=== PATIENT | female | born 1985 | race Caucasian/White ===

== ENCOUNTER 2019-07-18 11:51 | Outpatient (REF) | payer OTHER, SELFPAY ==
--- NOTE | 2019-07-18 11:00 | PAPFT_PTH ---
PATIENT: Jaja Patricio LOC: [facility]#:[id number] AGE/SX: 34/F ROOM: RE07/18/[address]: Georgi Arceo : 1985 BED: DIS: 07/18/2019 SPEC #: [id number] RECD: 07/21/19 12:34 STATUS: ROM REQ #: [id number] TUCKER: 07/18/19 11:[address]: Georgi Arceo DEPT: [facility] Cytology RECD BY: Liliana Bush ENTERED: 07/21/19 12:35 SP TYPE: PAPFT RAH DR: Jenifer Local Tissues: 1 - CX/ENDOCX FOR PAP SMEARS Procedures: PAP THIN PREP/UVM Screening HPV DNA PROBE Comments: [id number]
[2019-07-18 19:33] LABS: HCT 41.1 % (36.0-46.0); HGB 13.9 g/dL (12.0-15.5); Mean Corp. HGB Concentration 33.8 g/dL (32.0-36.0); Mean Corpuscular Hemoglobin 30.3 pg (27.0-33.0); Mean Corpuscular Volume 89.5 fL (80-95); Mean Platelet Volume 11.4 fL (8.0-11.0); Platelet Count 236 x1000/uL (130-400); RBC 4.59 m/cumm (4.00-5.20); RBC Distribution Width 12.6 % (11.7-14.6); White Blood Cell Count 4.22 k/cumm (4.4-10.8)
[2019-07-18 20:05] LABS: ALT 30 U/L (14-59); AST 17 U/L (15-37); Albumin 4.6 g/dL (3.4-5.0); Alkaline Phosphatase 36 U/L (46-116); Anion Gap 8.6 mmol/L (3-11); BUN 16 mg/dL (7-18); Bilirubin, Total 0.8 mg/dL (0.2-1.0); CO2 28.4 mmol/L (21.0-32.0); CREATININE 0.77 mg/dL (0.55-1.02); Calcium 9.3 mg/dL (8.5-10.1); Chloride 105 mmol/L (98-107); Glucose 91 mg/dL (74-106); Potassium 4.1 mmol/L (3.5-5.1); Sodium 142 mmol/L (136-145); TSH (W/Ref FT4) 0.07 uIU/mL (0.36-3.74); Total Protein 7.4 g/dL (6.4-8.2)
[2019-07-18 20:28] LABS: FREE T4 1.45 ng/dL (0.76-1.46)
[2019-07-18 20:43] LABS: Calculated LDL 80 mg/dL (<100); Cholesterol 148 mg/dL (<200); HDL Cholesterol 63 mg/dL (40-60); Triglyceride 26 mg/dL (<150)
== END 2019-07-18 12:11 ==
LOC: NCHCN 11:51
PROVIDERS: Visit Provider Nurse Practitioner Family
DX: E06.3 Autoimmune thyroiditis (principal); Z00.00 Encounter for general adult medical examination without abnormal findings; Z13.220 Encounter for screening for lipoid disorders; Z12.4 Encounter for screening for malignant neoplasm of cervix; Z11.51 Encounter for screening for human papillomavirus (HPV)
CPT/HCPCS: 80053; 80061; 85027; 88142; 84439; 84443; 87624

== ENCOUNTER 2020-02-13 01:36 | Outpatient (CLI) | payer OTHER, SELFPAY ==
--- NOTE | 2020-02-19 08:34 | W.HOLTRPT ---
Date of service: 02/19/20 Time of Service: 08:34 Holter Monitor Report Referring Provider:: Marielos Indications:: Palps Holter Monitor Note: This is a 48-hour Holter monitor ordered for indication of palpitations. ?The patient was in normal sinus rhythm for the majority of the recording with an average heart rate of 88 bpm. ?There were no episodes of supraventricular tachycardia and 4 singular PACs. ?There were no episodes of ventricular tachycardia and 0 PVCs. ?There were no episodes of atrial fibrillation, no pauses greater than 3 seconds and no evidence of high-grade heart block.
== END 2020-02-13 01:56 ==
PROVIDERS: PCP Nurse Practitioner Family; Visit Provider Nurse Practitioner Family
DX: R00.2 Palpitations (principal)
CPT/HCPCS: 93225

== ENCOUNTER 2020-02-18 09:08 | Outpatient (CLI) | payer OTHER, SELFPAY | END 2020-02-18 09:28 | PROVIDERS: PCP Nurse Practitioner Family; Visit Provider Nurse Practitioner Family | DX: R00.2 Palpitations (principal) | CPT/HCPCS: 93226 ==

== ENCOUNTER 2020-02-19 02:22 | Outpatient (CLI) | payer OTHER, SELFPAY ==
--- NOTE | 2020-02-19 | DI.US_ITS ---
APPROVED REPORT EXAM: Comprehensive 2D, Doppler, and color-flow Echocardiogram Patient Location: Out-Patient Educational Program Director: Lucina An RDCS (AE) Indications: Palpitations, Murmur Other Information Study Quality: Good Conclusion Left Ventricle : The left ventricle is normal size. The left ventricular systolic function is normal. The left ventricular ejection fraction is within the normal range. There is normal left ventricular wall thickness. There is normal LV segmental wall motion. The left ventricular diastolic function is normal. LVEF is 60%. Right Ventricle : The right ventricle is normal size. The right ventricular systolic function is norm al. The RVSP is 25.0 mmHg. Atria : The left atrium size is normal. The right atrium size is normal. Valves: There are no hemodynamically significant valvular lesions. Great Vessels : The aortic root is normal in size. The ascending aorta is normal in size. Aortic arch is normal in caliber. IVC is normal in size and collapses >50% with inspiration. Please see remainder of study for further details. Wall motion Left Ventricle The left ventricle is normal size. The left ventricular systolic function is normal. The left ventric ular ejection fraction is within the normal range. There is normal left ventricular wall thickness. T here is normal LV segmental wall motion. The left ventricular diastolic function is normal. There is no ventricular septal defect visualized. LVEF is 60%. Right Ventricle The right ventricle is normal size. The right ventricular systolic function is normal. The RVSP is 25 .0 mmHg. Atria The left atrium size is normal. The right atrium size is normal. The interatrial septum is intact wit h no evidence for an atrial septal defect. Aortic Valve The aortic valve is normal in structure. Aortic valve is trileaflet. There is no aortic valvular sten osis. No aortic regurgitation is present. Mitral Valve The mitral valve is normal in structure. No evidence of mitral valve stenosis. Trace to mild mitral r egurgitation. Tricuspid Valve The tricuspid valve is normal in structure. There is no tricuspid valve stenosis. Mild tricuspid regu rgitation. Pulmonic Valve The pulmonary valve is normal in structure. There is no pulmonic valvular stenosis. There is no pulmo kasi valvular regurgitation. Great Vessels The aortic root is normal in size. The ascending aorta is normal in size. Aortic arch is normal in ca liber. IVC is normal in size and collapses >50% with inspiration. Pericardium There is no pericardial effusion. 2D Dimensions IVSD d PLAX 0.84 cm F: 0.6-1.0 LV Vol A2C d MOD 130.3 mL LVPW d PLAX 0.80 cm F: 0.6 - 1.0 LV Vol A4C d MOD 96.3 mL LVID d PLAX 4.63 cm F: 3.8 - 5.2 LA vol/ BSA A4C s A-L 18.7 mL/m2 LVDs 3.00 cm F: 2.2 - 3.5 LA Area A4C s MOD 13.44 cm2 Ao Root d 2.56 cm F: 2.7 - 3.3 LV EF A4C MOD 59.8 % RA Area A4C 9.95 cm2 LV EF A2C MOD 58.1 % RA Vol/ BSA A4C s A-L 12.3 mL/m2 LV EF Biplane MOD 59.3 % Ao Asc Diam d 2.86 cm F: 2.3 - 3.1 SV 66.86 mL LV EF Teichholz 63.8 % SV Index 42.00 mL/m2 LVEF (Ocampo's) 59.29 % F: 54 - 74 LV Volume 91.80 mL F: 46 - 106 LV Volume Index 57.73 mL/m2 F: 29 - 61 LV Vol Biplane MOD 112.8 mL FS 34.60 % M-Mode TAPSE 2.81 cm (M/F) >1.7 LV Diastology MV E' medial 0.110 (>0.07 m/s) E/A Ratio 1.7 LV E/e MED 8.20 (<14) MV E Vmax 0.91 (0.4-1.3 m/s) MV E' lateral 0.175 (>0.1 m/s) MV A Vmax 0.55 (0.4-1.3 m/s) LV E/e LAT 5.15 (<14) MV E/A Ratio 1.65 MV E/E' medial 8.22 MV E/E' lateral 5.19 Aortic Valve LVOT Area 3.22 cm2 AoV Area Vmax 2.24 cm2 LVOT Vmax 0.92 m/s AoV Area/ BSA (Vmax) 1.41 cm2/m2 LVOT Mean Edin. 0.64 m/s GENEVIEVE Mean Edin. 2.09 cm2 LVOT Peak Grad 3.4 mmHg GENEVIEVE Mean Edin. Index 1.31 cm2/m2 LVOT Mean Grad 1.8 mmHg LVOT VTI 0.208 m LVOT Diam s 2.00 cm AoV Vmax 1.32 m/s Velocity Ratio 0.69 AoV Mean Edin. 0.98 m/s AoV Peak Grad 7.0 mmHg LVOT SV 67.10 mL AoV Mean Grad 4.2 mmHg AoV VTI 0.289 m AoV Area VTI 2.32 cm2 AoV Area/ BSA (VTI) 1.46 cm/m2 Mitral Valve MV DT 209 (160-240 msec) MV PHT 61 msec MV Area PHT 3.63 cm2 Pulmonary Valve PV Vmax 0.99 (0.5-1.5 m/s) RVOT Peak Gr. 2.29 mmHg PV Peak Grad 3.9 mmHg RVOT Mean Gr. 1.00 mmHg PV Mean Grad 1.8 mmHg RVOT VTI 0.149 m PV VTI 0.208 m RVOT Vmax 0.76 m/s Tricuspid Valve TR Peak Grad 22.0 mmHg TR Vmax 2.35 m/s RA Pressure 3.00 mmHg RVSP (TR) 25.0 mmHg
== END 2020-02-19 02:42 ==
PROVIDERS: PCP Nurse Practitioner Family; Visit Provider Nurse Practitioner Family
DX: R00.2 Palpitations (principal); R01.1 Cardiac murmur, unspecified
CPT/HCPCS: 93306

== ENCOUNTER 2020-03-24 02:14 | Outpatient (CLI) | payer OTHER, SELFPAY ==
[2020-03-25 09:48] LABS: HBs Antibody, Quant 761.9 mIU/mL (See Note); Hepatitis B Surface Ab Positive (See Note)
== END 2020-03-24 02:34 ==
PROVIDERS: PCP Nurse Practitioner Family; Visit Provider Nurse Practitioner Family
DX: E06.3 Autoimmune thyroiditis (principal); Z11.59 Encounter for screening for other viral diseases; Z02.1 Encounter for pre-employment examination
CPT/HCPCS: 36415; 86706; 84443

== ENCOUNTER 2020-12-24 20:58 | Outpatient (REF) | payer OTHER, SELFPAY ==
[2020-12-26 01:50] LABS: COVID-19 RT-PCR UVMMC Result Negative (Negative)
== END 2020-12-24 20:59 | disposition home or self-care (01) ==
LOC: LBN 20:58
PROVIDERS: PCP Nurse Practitioner Family; Visit Provider Nurse Practitioner Family
DX: Z20.822 Contact with and (suspected) exposure to COVID-19 (principal)
CPT/HCPCS: U0003

== ENCOUNTER 2021-01-12 11:15 | Outpatient (REF) | payer OTHER, SELFPAY ==
[2021-01-13 00:09] LABS: COVID-19 RT-PCR UVMMC Result Negative (Negative)
== END 2021-01-12 11:16 | disposition home or self-care (01) ==
LOC: LBN 11:15
PROVIDERS: PCP Nurse Practitioner Family; Visit Provider Nurse Practitioner Family
DX: Z20.822 Contact with and (suspected) exposure to COVID-19 (principal)
CPT/HCPCS: U0003

== ENCOUNTER 2021-04-04 18:50 | Outpatient (REF) | payer OTHER, SELFPAY ==
[2021-04-05 20:19] LABS: COVID-19 RT-PCR UVMMC Result Negative (Negative)
== END 2021-04-04 18:51 | disposition home or self-care (01) ==
LOC: LBN 18:50
PROVIDERS: PCP Nurse Practitioner Family; Visit Provider Nurse Practitioner Family
DX: Z20.822 Contact with and (suspected) exposure to COVID-19 (principal)
CPT/HCPCS: U0003

== ENCOUNTER 2021-04-09 10:30 | Outpatient (CLI) | payer OTHER, SELFPAY ==
--- NOTE | 2021-04-09 10:30 | DI.RAD_ITS ---
Exam(s) XR ANKLE LT COMPLETE EXAM: XR ANKLE LT COMPLETE CLINICAL HISTORY: r/o fx TECHNIQUE: 2D digital imaging was performed of the left ankle. Three images were obtained. AP, lat eral and oblique views were obtained. COMPARISON: No exams were available for comparison FINDINGS: BONES: No acute fracture is present. No bony destructive lesion is seen. JOINTS:The ankle mortise is normally aligned. SOFT TISSUE: Normal. IMPRESSION: Unremarkable radiographs of the left ankle. DATA REPOSITORY: RADIATION DOSE DELIVERED:
--- NOTE | 2021-04-09 10:30 | DI.RAD_ITS ---
Exam(s) XR FOOT LT COMPLETE EXAM: XR FOOT LT COMPLETE CLINICAL HISTORY: r/o fx. TECHNIQUE: 2D digital imaging was performed of the left foot. Three images were obtained. AP, obli que and lateral views were obtained. COMPARISON: No exams were available for comparison FINDINGS: BONES: No acute fracture is present. No bony destructive lesion is seen. JOINTS: No dislocation present. SOFT TISSUE: Normal. IMPRESSION: Unremarkable radiographs of the left foot. DATA REPOSITORY: RADIATION DOSE DELIVERED:
--- NOTE | 2021-04-09 13:21 | DI.VRAD_ITS ---
PROCEDURE INFORMATION: Exam: XR Left Foot Exam date and time: 04/09/2021 10:45 AM Age: 36 years old Clinical indication: Injury or trauma; Other: Skiing ax; Sprain or strain; Foot; Left TECHNIQUE: Imaging protocol: XR Left foot. Views: 3 or more views. COMPARISON: No relevant images were readily available for comparison purposes. FINDINGS: Bones/joints: No acute fracture or dislocation Soft tissues: Unremarkable IMPRESSION: No acute fracture or dislocation Dictated and Authenticated by: Maico Blanchard MD. Ordering:MARCELLA Gonsalez MD
--- NOTE | 2021-04-09 13:22 | DI.VRAD_ITS ---
PROCEDURE INFORMATION: Exam: XR Left Ankle Exam date and time: 04/09/2021 10:45 AM Age: 36 years old Clinical indication: Injury or trauma; Other: Skiin ax; Sprain or strain; Ankle; Left TECHNIQUE: Imaging protocol: XR Left ankle. Views: 3 or more views. COMPARISON: CR XR FOOT LT COMPLETE 04/09/2021 11:24 AM FINDINGS: Bones/joints: No acute fracture or dislocation. Soft tissues: Unremarkable. IMPRESSION: No acute fracture or dislocation. Dictated and Authenticated by: Maico Blanchard MD. Ordering:MARCELLA Gonsalez MD
== END 2021-04-09 10:50 ==
PROVIDERS: PCP Nurse Practitioner Family; Visit Provider Nurse Practitioner Family
DX: M79.672 Pain in left foot (principal)
CPT/HCPCS: 73610; 73630

== ENCOUNTER 2021-04-20 15:38 | Outpatient (REF) | payer OTHER, SELFPAY ==
[2021-04-21 22:41] LABS: COVID-19 RT-PCR UVMMC Result Negative (Negative)
== END 2021-04-20 15:39 | disposition home or self-care (01) ==
LOC: LBN 15:38
PROVIDERS: PCP Nurse Practitioner Family; Visit Provider Nurse Practitioner Family
DX: Z20.822 Contact with and (suspected) exposure to COVID-19 (principal)
CPT/HCPCS: U0003

== ENCOUNTER 2021-05-23 16:50 | Outpatient (REF) | payer OTHER, SELFPAY ==
[2021-05-23 18:18] LABS: HCT 43.5 % (36.0-46.0); HGB 14.1 g/dL (11.2-15.7); MCH 29.7 pg (27.0-33.0); MCHC 32.4 % (32.0-36.0); MCV 91.8 fL (80-95); MPV 10.8 fL (8.0-11.0); Platelet Count 235 10^3/uL (130-400); RBC 4.74 10^6/uL (3.93-5.22); RDW 12.2 % (11.7-14.6); RDW-SD 41.3 fL; WBC 4.59 10^3/uL (4.4-10.8)
[2021-05-23 18:38] LABS: ALT 23 U/L (14-59); AST 16 U/L (15-37); Albumin 4.6 g/dL (3.4-5.0); Alkaline Phosphatase 34 U/L (46-116); Anion Gap 7.7 mmol/L (3-11); BUN 13 mg/dL (7-18); Bilirubin, Total 0.9 mg/dL (0.2-1.0); CO2 29.3 mmol/L (21.0-32.0); CREATININE 0.7 mg/dL (0.55-1.02); Calcium 9.5 mg/dL (8.5-10.1); Chloride 100 mmol/L (98-107); Glucose 77 mg/dL (74-106); Potassium 4.1 mmol/L (3.5-5.1); Sodium 137 mmol/L (136-145); TSH (W/Ref FT4) 0.59 uIU/mL (0.36-3.74); Total Protein 7.6 g/dL (6.4-8.2)
[2021-05-25 10:12] LABS: Hepatitis C Ab w Rflx HCV PCR Negative (Negative)
[2021-05-25 10:45] LABS: HIV-1/2 Ag & Ab Screen Negative (Negative)
== END 2021-05-23 16:51 | disposition home or self-care (01) ==
LOC: NCHCN 16:50
PROVIDERS: PCP Nurse Practitioner Family; Visit Provider Nurse Practitioner Family
DX: E06.3 Autoimmune thyroiditis (principal); Z11.4 Encounter for screening for human immunodeficiency virus [HIV]; Z11.59 Encounter for screening for other viral diseases
CPT/HCPCS: 80053; 85027; 86803; 87389; 84443

== ENCOUNTER 2021-05-30 15:38 | Outpatient (REF) | payer OTHER, SELFPAY ==
[2021-05-31 20:14] LABS: COVID-19 RT-PCR UVMMC Result Negative (Negative)
== END 2021-05-30 15:39 | disposition home or self-care (01) ==
LOC: LBO 15:38
PROVIDERS: PCP Nurse Practitioner Family; Visit Provider Nurse Practitioner Family
DX: Z20.822 Contact with and (suspected) exposure to COVID-19 (principal)
CPT/HCPCS: U0003

== ENCOUNTER 2022-03-06 17:27 | Outpatient (REF) | payer OTHER, SELFPAY ==
[2022-03-07 21:34] LABS: COVID-19 RT-PCR UVMMC Result Negative (Negative)
== END 2022-03-06 17:28 | disposition home or self-care (01) ==
LOC: LBN 17:27
PROVIDERS: Visit Provider Nurse Practitioner Family
DX: Z20.822 Contact with and (suspected) exposure to COVID-19 (principal)
CPT/HCPCS: U0003

== ENCOUNTER 2022-12-11 18:45 | Outpatient (REF) | payer OTHER, SELFPAY ==
[2022-12-11 21:23] LABS: HCT 37.1 % (36.0-46.0); HGB 12.8 g/dL (11.2-15.7); MCH 30.5 pg (27.0-33.0); MCHC 34.5 % (32.0-36.0); MCV 88 fL (80-95); MPV 10.8 fL (8.0-11.0); Platelet Count 220 10^3/uL (130-400); RDW 12.2 % (11.7-14.6); RDW-SD 39.2 fL; WBC 6.17 10^3/uL (4.4-10.8)
[2022-12-11 21:44] LABS: TSH (W/Ref FT4) 1.21 uIU/mL (0.36-3.74)
== END 2022-12-11 18:46 | disposition home or self-care (01) ==
LOC: NCHCN 18:45
PROVIDERS: PCP Nurse Practitioner Family; Visit Provider Nurse Practitioner Family
DX: E06.3 Autoimmune thyroiditis (principal); K64.9 Unspecified hemorrhoids
CPT/HCPCS: 85027; 84443

== ENCOUNTER → 2022-12-27 13:19 | Outpatient (CLI) | payer OTHER, SELFPAY ==
--- NOTE | 2022-12-27 13:44 | DI.RAD_ITS ---
Exam(s) XR KNEE LT 4V AP,LAT,CARTER,PAT EXAM: XR KNEE LT 4V AP,LAT,CARTER,PAT CLINICAL HISTORY: fell off boat 1.5 weeks ago, getting worse, lt knee pain, M25.562. TECHNIQUE: 2D digital imaging was performed of the left knee. Four images were obtained. Merchant, AP, lateral and PA tunnel views were obtained. COMPARISON: No exams were available for comparison FINDINGS: BONES: No acute fracture is present. No bony destructive lesion is seen. There are postsurgical jones ges of a prior ACL repair. JOINTS: The knee is normally aligned. No joint effusion is seen. No loose body. SOFT TISSUE: Normal. IMPRESSION: No acute abnormality. DATA REPOSITORY: RADIATION DOSE DELIVERED:
== END ==
PROVIDERS: PCP Nurse Practitioner Family; Visit Provider Nurse Practitioner Family
DX: M25.562 Pain in left knee (principal)
CPT/HCPCS: 73564

== ENCOUNTER 2023-01-05 21:18 | Outpatient (REF) | payer OTHER, SELFPAY ==
[2023-01-08 10:03] LABS: Measles IgG Antibody Positive (See Note)
[2023-01-08 10:06] LABS: Mumps Antibody IgG Positive (See Note)
[2023-01-08 10:10] LABS: Rubella IgG Ab (UVM) Positive (See Note)
== END 2023-01-05 21:19 | disposition home or self-care (01) ==
LOC: LBN 21:18
PROVIDERS: PCP Nurse Practitioner Family; Visit Provider Nurse Practitioner Family
DX: Z20.828 Contact with and (suspected) exposure to other viral communicable diseases (principal); Z20.4 Contact with and (suspected) exposure to rubella
CPT/HCPCS: 86735; 86762; 86765

== ENCOUNTER 2023-08-30 10:18 | Outpatient (REF) | payer OTHER, SELFPAY ==
--- NOTE | 2023-08-30 08:50 | PAPFT_PTH ---
PATIENT: Jaja Patricio LOC: [facility] U#:[id number] AGE/SX: 38/F ROOM: RE08/30/[address]: Fouzia Guerrero DO : 1985 BED: DIS: 08/30/2023 SPEC #: [id number] RECD: 08/30/23 12:49 STATUS: SOUOleg REQ #: [id number] TUCKER: 08/30/23 08:[address]: Fouzia Guerrero DEPT: [facility] Cytology RECD BY: Liliana Bush ENTERED: 08/30/23 12:50 SP TYPE: PAPFT OTHR DR: LYLA PRASAD Tissues: 1 - CX/ENDOCX FOR PAP SMEARS Procedures: PAP THIN PREP/UVM Screening HPV DNA PROBE Comments: [id number] (HPV 16 & 18/45)
== END 2023-08-30 10:19 | disposition home or self-care (01) ==
LOC: LBN 10:18
PROVIDERS: PCP Nurse Practitioner Family; Visit Provider Obstetrics & Gynecology
DX: N93.8 Other specified abnormal uterine and vaginal bleeding (principal); Z87.410 Personal history of cervical dysplasia
CPT/HCPCS: 88142; 87624

== ENCOUNTER 2023-08-31 21:14 | Outpatient (REF) | payer OTHER, SELFPAY ==
[2023-09-03 09:41] LABS: Prolactin 10.8 ng/mL (See Note)
[2023-09-03 09:43] LABS: FSH 8.5 mIU/mL (See Note)
[2023-09-03 09:50] LABS: LH 6.8 mIU/mL (See Note)
== END 2023-08-31 21:15 | disposition home or self-care (01) ==
LOC: LBN 21:14
PROVIDERS: PCP Nurse Practitioner Family; Visit Provider Obstetrics & Gynecology
DX: N93.8 Other specified abnormal uterine and vaginal bleeding (principal)
CPT/HCPCS: 83001; 83002; 84146

== ENCOUNTER 2024-03-13 16:30 | Outpatient (CLI) | payer OTHER, SELFPAY ==
--- NOTE | 2024-03-13 16:45 | DI.RAD_ITS ---
Exam(s) XR ANKLE LT COMPLETE EXAM: XR ANKLE LT COMPLETE CLINICAL HISTORY: Acute lt ankle pain, M25.572, evaluate fx TECHNIQUE: 2D digital imaging was performed of the left ankle. Three images were obtained. AP, lat eral and oblique views were obtained. COMPARISON: CR,XR XR ANKLE LT COMPLETE from 04/09/2021 FINDINGS: BONES: No acute fracture is present. No bony destructive lesion is seen. JOINTS:The ankle mortise is normally aligned. SOFT TISSUE: Normal. IMPRESSION: Unremarkable radiographs of the left ankle. DATA REPOSITORY: RADIATION DOSE DELIVERED:
--- NOTE | 2024-03-13 17:02 | DI.VRAD_ITS ---
PROCEDURE INFORMATION: Exam: XR Left Ankle Exam date and time: 03/13/2024 4:42 PM Age: 39 years old Clinical indication: Other: Acute lt ankle pain, evaluate FX TECHNIQUE: Imaging protocol: Radiologic exam of the left ankle. Views: 3 or more views. COMPARISON: CR XR ANKLE LT COMPLETE 04/09/2021 11:26 AM FINDINGS: Bones/joints: Osseous mineralization is normal. There are no inflammatory osseous erosive changes. The ankle mortise is well aligned and well maintained without degenerative changes. There are no acute displaced fractures or subluxations. The plantar arch is maintained. Soft tissues: There is no soft tissue swelling or soft tissue air. IMPRESSION: No acute displaced fractures or subluxations identified. Dictated and Authenticated by: Guero Haskins MD. Ordering:MARCELLA Gonsalez MD
== END 2024-03-13 16:50 ==
LOC: DI 16:30
PROVIDERS: Visit Provider Nurse Practitioner Family
DX: M25.572 Pain in left ankle and joints of left foot (principal)
CPT/HCPCS: 73610

== ENCOUNTER 2024-04-17 15:24 | Outpatient (CLI) | payer OTHER, SELFPAY ==
--- NOTE | 2024-04-17 08:30 | DI.RAD_ITS ---
Exam(s) XR TIB/FIB LT EXAM: XR TIB/FIB LT CLINICAL HISTORY: proximal lateral leg pain. TECHNIQUE: 2D digital imaging was performed of the left tibia and fibula. Two images were obtained. AP and lateral views were obtained. COMPARISON: CR,XR XR ANKLE LT COMPLETE from 04/09/2021 CR,XR XR FOOT LT COMPLETE from 04/09/2021 CR XR KNEE LT 4V AP,LAT,CARTER,PAT from 12/27/2022 CR,XR XR ANKLE LT COMPLETE from 03/13/2024 FINDINGS: BONES: No acute fracture is present. No bony destructive lesion is seen. Visualized portion of knee a nd ankle joints are unremarkable. There are findings of a prior ACL repair. SOFT TISSUE: Normal. IMPRESSION: Unremarkable radiographs of the left tibia and fibula. DATA REPOSITORY: RADIATION DOSE DELIVERED:
== END 2024-04-17 15:25 | disposition home or self-care (01) ==
LOC: DIORS 15:24
PROVIDERS: PCP Nurse Practitioner Family; Visit Provider Student in an Organized Health Care Education/Training Program
DX: M79.605 Pain in left leg (principal)
CPT/HCPCS: 73590

== ENCOUNTER 2024-04-18 00:21 | Outpatient (CLI) | payer OTHER, SELFPAY ==
--- NOTE | 2024-04-18 07:45 | DI.MAMMO_ITS ---
Exam(s) MAMMO SCREENING EXAM: MAMMO SCREENING CLINICAL HISTORY: screening,z12.39 TECHNIQUE: Bilateral full field digital CC and MLO mammographic images were obtained with 3D tomosyn thesis and utilizing computer aided detection (CAD). COMPARISON: This is a baseline examination. FINDINGS: Masses/Architectural Distortion: No suspicious masses are seen. No areas of architectural distortion are appreciated. Microcalcifications: No suspicious pleomorphic-type are seen. Skin Thickening/Nipple Retraction: None. IMPRESSION: 1. No definite evidence to suggest malignancy is seen at this time. 2. Unless there is more urgent need, screening mammography is recommended, as per [employer] guidelines. BI-RADS Category 1 - Negative Breast Density - Category C - Heterogeneously dense Breast density category C or D implies that the patient has dense breast tissue. Dense breast tissue is very common and is not abnormal but dense breast tissue can make it harder to find cancer on a ma mmogram. Also, dense breast tissue may increase their breast cancer risk. This information about the result of the mammogram report was provided to the patient to raise their awareness. Use this report when you speak with the patient about their risks for breast cancer, which includes their family hist ory. At that time, you may recommend for more screening tests (Ultrasound or MRI) as they might be us eful based on their risk. A negative radiographic report should not delay biopsy if a dominant or clinically suspicious mass is present. Up to ten percent of cancers are not identified on mammography. A negative report may reinforce clinical impression. Adenosis and dense breasts may obscure an underlying neoplasm. False positive reports average 6 to 10%. Patient will receive a letter notifying them of these results.
== END 2024-04-18 00:41 ==
LOC: DI 00:21
PROVIDERS: PCP Nurse Practitioner Family; Visit Provider Nurse Practitioner Family
DX: Z12.31 Encounter for screening mammogram for malignant neoplasm of breast (principal); R92.333 Mammographic heterogeneous density, bilateral breasts
CPT/HCPCS: 77063; 77067

== ENCOUNTER 2024-05-02 00:19 | Outpatient (CLI) | payer OTHER, SELFPAY ==
--- NOTE | 2024-05-02 07:30 | DI.MRI_ITS ---
Exam(s) MR LOWER JOINT LT WO EXAM: MR LOWER JOINT LT WO CLINICAL HISTORY: ankle sprain,severe,s93.409a TECHNIQUE: Multiplanar multisequence MRI was performed without intravenous contrast. COMPARISON: CR,XR XR ANKLE LT COMPLETE from 03/13/2024 CR XR TIB/FIB LT from 04/17/2024 FINDINGS: BONES/JOINTS: Marrow edema seen in the posterior, lateral aspect of the talus. Marrow edema also not ed in the tip of the distal fibula and lateral, superior aspect of the calcaneus. Findings are consi stent with bone contusions. No discrete fracture. No suspicious bone lesions identified. The talar dome is smooth. The ankle mortise is maintained. A small tibiotalar joint effusion is present. LIGAMENTS: The tibiofibular and calcaneofibular ligaments are intact. The talofibular ligaments are i ntact. The deltoid ligament shows edema consistent with sprain.. The syndesmosis is unremarkable. S inus tarsi is normal. MUSCULOTENDINOUS STRUCTURES: Achilles tendon: Unremarkable. Plantar fascia: Unremarkable. Anterior Extensor tendons: Unremarkable. Posterior Tibialis: Unremarkable. Flexor Digitorum longus: Unremarkable. Flexor Hallucis longus: Unremarkable. Peroneus longus: Unremarkable. Peroneus brevis:Unremarkable. SOFT TISSUES: Mild edema around the malleoli. IMPRESSION: Bone contusions of the posterolateral talus, superolateral calcaneus and lateral malleolus. Deltoid ligament sprain. No evidence of tendon tear or significant tenosynovitis. DATA REPOSITORY:
== END 2024-05-02 00:39 ==
LOC: DI 00:19
PROVIDERS: Visit Provider Family Medicine
DX: S90.02XA Contusion of left ankle, initial encounter (principal); X58.XXXA Exposure to other specified factors, initial encounter
CPT/HCPCS: 73721

== ENCOUNTER 2024-06-26 16:00 | Outpatient (REF) | payer OTHER, SELFPAY ==
[2024-06-26 21:24] LABS: TSH (W/Ref FT4) 0.81 uIU/mL (0.36-3.74)
== END 2024-06-26 16:01 | disposition home or self-care (01) ==
LOC: LBN 16:00
PROVIDERS: PCP Nurse Practitioner Family; Visit Provider Family Medicine
DX: E03.9 Hypothyroidism, unspecified (principal); K44.9 Diaphragmatic hernia without obstruction or gangrene; S93.409A Sprain of unspecified ligament of unspecified ankle, initial encounter
CPT/HCPCS: 84443

== ENCOUNTER 2024-08-01 12:46 | Outpatient (REF) | payer OTHER, SELFPAY ==
[2024-08-01 15:38] LABS: ALT 22 U/L (14-59); AST 15 U/L (15-37); Albumin 4.5 g/dL (3.4-5.0); Alkaline Phosphatase 32 U/L (46-116); Anion Gap 8.7 mmol/L (3-11); BUN 14 mg/dL (7-18); Bilirubin, Total 0.6 mg/dL (0.2-1.0); CO2 29.3 mmol/L (21.0-32.0); CREATININE 0.8 mg/dL (0.55-1.02); Calcium 9.6 mg/dL (8.5-10.1); Calculated LDL 109 mg/dL (<100); Chloride 107 mmol/L (98-107); Cholesterol 197 mg/dL (<200); Estimated GFR 94.87 (mL/min/1.73m2); Glucose 87 mg/dL (74-106); HDL Cholesterol 80 mg/dL (>or=50); Potassium 4.1 mmol/L (3.5-5.1); Sodium 145 mmol/L (136-145); Total Protein 7.4 g/dL (6.4-8.2); Triglyceride 43 mg/dL (<150)
== END 2024-08-01 12:47 | disposition home or self-care (01) ==
LOC: LBN 12:46
PROVIDERS: PCP Nurse Practitioner Family; Visit Provider Nurse Practitioner Family
DX: Z13.220 Encounter for screening for lipoid disorders (principal)
CPT/HCPCS: 80053; 80061

== ENCOUNTER 2024-08-11 01:00 | Outpatient (CLI) | payer OTHER, SELFPAY ==
--- NOTE | 2024-08-11 06:45 | DI.RAD_ITS ---
Exam(s) RF BARIUM SWALLOW EXAM: RF BARIUM SWALLOW CLINICAL HISTORY: hiatal hernia,k44.9 TECHNIQUE: 2D and realtime digital imaging was performed. CONTRAST MATERIAL: Oral barium Oral water soluble contrast was administered. COMPARISON: No exams were available for comparison FINDINGS: Esophagram performed single and air-contrast technique, both standing and recumbent ESOPHAGRAM: The swallowing mechanism appears grossly intact. No aspiration evident. No Zenker's div erticulum. The diameter of the esophagus is normal and there are no tertiary waves. No evidence of hiatal hernia nor Schatzki ring nor GE reflux. A possible concern here is finding on the right wall of the esophagus at approximately T6 level. At this level there appears to be transient but recurrent eccentric stasis of barium which is possibly i n an ulceration of the wall at this level versus is subtle diverticulum at this level. There is no e vidence of pulsion diverticulum lower down in the esophagus. IMPRESSION: Abnormal finding in the right lateral wall the esophagus at approximately T6 level as described above . Direct visualization/endoscopy is recommended to rule out concerning pathology at this level. There is no evidence of hiatal hernia, as per request. RADIATION DOSE DELIVERED: gamaliel Ennis=49.8 mGy
[2024-08-11] MEDS: Barium Sulfate 60% W/V 355 ML BTL PO (10:24)
[2024-08-11] MEDS: Barium Sulfate 98% W/W 140 ML BTL PO (10:24)
[2024-08-11] MEDS: Simethicone/Sod Bicarb/Cit Ac, 4 gram PACKET 1 PACKET PO (10:25)
== END 2024-08-11 01:20 ==
LOC: DI 01:01
PROVIDERS: PCP Nurse Practitioner Family; Visit Provider Family Medicine
DX: K44.9 Diaphragmatic hernia without obstruction or gangrene (principal)
CPT/HCPCS: 74221; J3490

== ENCOUNTER 2024-08-15 12:15 | Day surgery (SDC) | payer OTHER, SELFPAY ==
[2024-08-15 12:27] VITALS: BP 107/73; PULSE 68; RESP 16; TEMP 35.9; O2SAT 98
--- NOTE | 2024-08-15 12:55 | ANES.PREOP_ITS ---
General Info Date of Service Date Performed: 08/15/24 Height: 5 ft 2 in Weight: 63 kg Body Mass Index (BMI): 25.4 Surgical Procedure: Operation Date: 08/15/24 14:20 Proposed Procedure Side Surgeon p Gastroscopy Ryan Kapadia MD Meds Allergies and Home Medications Allergies Allergy/AdvReac Type Severity Reaction Status Date / Time ciprofloxacin Allergy Intermediate rash Verified 08/15/24 12:33 cefaclor (From Ceclor) AdvReac Intermediate rash Verified 08/15/24 12:33 Home Medication ?Medication ?Instructions ?Recorded levothyroxine 112 mcg capsule 112 mcg PO DAILY #90 caps 02/01/24 metformin 500 mg tablet 500 mg PO QDAY #90 tabs 07/24/24 Current Visit Medications: Current Medications Generic Name Dose Route Start Last Admin Trade Name Freq PRN Reason Stop Dose Admin Ringer's Solution 1,000 mls @ 80 mls/hr 08/15/24 06:00 IV 08/15/24 23:59 INFUSION LILLIAN IV Miscellaneous Supplies 1 each 08/15/24 06:00 Iv Access IV 08/15/24 23:59 DIRECTED LILLIAN Sodium Chloride 0 ml 08/15/24 06:00 Normal Saline Flush 10 Ml Syr IV 08/15/24 23:59 PRN PRN Sodium Chloride 0 ml 08/15/24 06:00 Normal Saline 10 Ml Vial IJ 08/15/24 23:59 DIRECTED PRN Sterile Water 0 ml 08/15/24 06:00 Water,Injection,Sterile 10 Ml Vial IJ 08/15/24 23:59 DIRECTED PRN PFSH Active Problems Active Problems: Problem Status Onset Code Esophageal ulcer Acute K22.10 Hypothyroidism Chronic E03.9 Hiatal hernia Chronic K44.9 Severe ankle sprain Acute S93.409A Hx LEEP (loop electrosurgical excision procedure), cervix, Acute O34.40, Z98.890 DUB (dysfunctional uterine bleeding) Acute N93.8 Left knee pain Acute M25.562 Medical History Medical History Zonia's thyroiditis History of cervical dysplasia Cervical dysplasia Palpitations Per pt. states this was anxiety related during a stressful life event. Dysplastic nevus Heart murmur Disorder of ear, left GERD (gastroesophageal reflux disease) Hemorrhoid Surgical History Surgical History History of foot surgery History of shoulder surgery History of knee surgery (~2000) ACL-left knee History of delivery x2 2014 & 2016 Tobacco Smoking/Tobacco Use Status: Never Passive smoking exposure: No Alcohol Alcohol Intake: current Alcohol intake frequency: a few times a month Substance Use Substance use: Never Substance use type: does not use Prental History History 2 Para 2 Hx # Term Pregnancies 1 Multiple births Hx # Pregnancies 1 Ectopic pregnancies AB induced Hx Number of Living Children 2 AB spontaneous Vital Signs and Lab Results Vital Signs Most Recent Vital Signs in EMR: Most Recent Vital Signs Temp Pulse Resp BP Pulse Ox 35.9 C L 68 16 107/73 98 08/15/24 12:27 08/15/24 12:27 08/15/24 12:27 08/15/24 12:27 08/15/24 12:27 Point of Care Results Point of Care Results: POC- Test(urine) Negative 08/15/24 12:48 Lab Results Blood Type / Crossmatch: No Data to Display Complete Blood Count: No Data to Display Complete Metabolic Panel: Sodium 145 mmol/L (136-145) 08/01/24 09:10 Potassium 4.1 mmol/L (3.5-5.1) 08/01/24 09:10 Chloride 107 mmol/L (98-107) 08/01/24 09:10 Carbon Dioxide 29.3 mmol/L (21.0-32.0) 08/01/24 09:10 BUN 14 mg/dL (7-18) 08/01/24 09:10 Creatinine 0.8 mg/dL (0.55-1.02) 08/01/24 09:10 Est GFR (CKD-EPI 2020) 94.87 (mL/min/1.73m2) 08/01/24 09:10 Calcium 9.6 mg/dL (8.5-10.1) 08/01/24 09:10 Albumin 4.5 g/dL (3.4-5.0) 08/01/24 09:10 Glucose 87 mg/dL (74-106) 08/01/24 09:10 Liver Function Panel: Alanine Aminotransferase (ALT/SGPT) 22 U/L (14-59) 08/01/24 09: 10 Aspartate Amino Transf (AST/SGOT) 15 U/L (15-37) 08/01/24 09:10 Coagulation Panel: No Data to Display Cardiac Panel: No Data to Display Arterial Blood Gas: No Data to Display Venous Blood Gas: No Data to Display Pancreas Panel: No Data to Display Thyroid Panel: No Data to Display Infectious Disease: No Data to Display Blood Cultures: No Data to Display Toxicology Panel: No Data to Display Panel: No Data to Display Imaging and Studies Imaging and Studies Study information below may be from another EMR and interpreted by another provider. Please see original notes in EMR for more complete details. Echocardiogram Summary: 02/19/20: Conclusion Left Ventricle : The left ventricle is normal size. The left ventricular systolic function is normal. The left ventricular ejection fraction is within the normal range. There is normal left ventricular wall thickness. There is normal LV segmental wall motion. The left ventricular diastolic function is normal. LVEF is 60%. Right Ventricle : The right ventricle is normal size. The right ventricular systolic function is normal. The RVSP is 25.0 mmHg. Atria : The left atrium size is normal. The right atrium size is normal. Valves: There are no hemodynamically significant valvular lesions. Great Vessels : The aortic root is normal in size. The ascending aorta is normal in size. Aortic arch is normal in caliber. IVC is normal in size and collapses >50% with inspiration. Please see remainder of study for further details. Anesthesia Assessment and Plan Anesthesia History Personal History: Other Family History: No Family History of Anesthesia Complications Exercise Tolerance Exercise Tolerance: Metabolic Equivalents>4 Cardiac & Pulmonary Exam Cardiac Exam: Normal S1/S2 Heart Sounds Pulmonary Exam: Clear Bilateral Breath Sounds Implantable Cardiac Device Does patient have a Pacemaker or an ICD?: No Airway Exam Known Difficult Airway: No Mallampati Class: 1 Mouth Opening: Normal (> 3cm) Thyromental Distance: Greater than 3 cm Neck Range of Motion: Full ROM Neck Circumference: Normal Teeth Condition: Normal Dentition ASA Classification ASA Score: ASA 2 Emergency Case?: No NPO Status NPO Status: NPO Clears >2 hours, Solids >8 hours Status Status: Negative HCG Anesthesia Plan Resuscitation Status: Full Code Anesthesia Technique: General Anesthesia Airway Planned: Natural Airway Monitors Used: Standard Monitors
[2024-08-15] MEDS: Lactated Ringers 1,000 ML 80 ML IV (12:57)
[2024-08-15 13:10] VITALS: BMI 25.4
--- NOTE | 2024-08-15 13:16 | W.PM.ENDDOP ---
Date of service: 08/15/24 Time of Service: 13:17 Endoscopy Report PROCEDURE DESCRIPTION: PROCEDURES PERFORMED: 1. EGD with biopsies PREOPERATIVE DIAGNOSIS: Chest pain, esophageal diverticulum POSTOPERATIVE DIAGNOSIS: Normal foregut, normal vocal cords SURGEON: Paul Kapadia MD INDICATION FOR PROCEDURE: 39-year-old healthy woman has had 3 episodes of episodic, short?left chest discomfort. An esophagram demonstrated concern for the possibility of an esophageal ulcer or a small diverticulum. Radiology recommended endoscopic evaluation. Separately, the patient has concerns about the possibility of vocal cord polyps. FINDINGS: D2/D3 = normal D1/bulb = normal - no ulcers or inflammation Pylorus = normal Antrum = normal appearance, no ulcers, cold forceps biopsies were taken to rule out H. pylori routinely Body = normal appearance Fundus = normal, no polyps Cardia = normal Hiatus = no hiatal hernia, Hill grade 1 (normal) Distal esophagus = no inflammation, no esophagitis, no Cheng's, no stricture. I took biopsies because of her symptoms but I suspect these will come back as normal. Mid esophagus = normal Proximal esophagus/hypopharynx/vocal cords = normal OVERALL FINDINGS: Normal foregut. No diverticulum noted. No esophagus ulcer. While this is not laryngoscopy, the visualized vocal cords were completely normal in appearance. SURVEILLANCE-INTERVAL/FOLLOW-UP: Manometry can be considered. Specimens: Yes EBL: Minimal COMPLICATIONS: None Procedure in detail: The patient gave written consent and was in agreement with the indications, the potential risks as well as the benefits of the procedure. The patient was taken to the endoscopy suite and laid on their left side. Anesthesia was given which was tolerated well. We performed a timeout and we are in agreement I started the procedure. A well-lubricated endoscope was gently and carefully advanced down the esophagus, into the stomach the scope was and through the pylorus into the duodenum. The scope was then slowly withdrawn with the above-noted findings/interventions. The patient tolerated the procedure well and was then taken back to day surgery in hemodynamically stable condition.
--- NOTE | 2024-08-15 13:17 | W.PM.DSUDISC ---
Date of service: 08/15/24 Discharge Plan Disposition Patient Disposition: Home Condition: Good Discharge Details Attending Provider: Ryan Kapadia Primary Care Provider: Georgi Vasquez Home Meds and New Rx's Prescriptions: No Action metformin 500 mg tablet 500 mg PO QDAY Qty: 90 4RF levothyroxine 112 mcg capsule 112 mcg PO DAILY Qty: 90 4RF Discharge Instructions Additional Instructions: FINDINGS: Your esophagus looks normal. I did not find anything unusual or abnormal. We did take some biopsies for microscopic analysis but I suspect these will come back normal. Unclear what your symptoms are from but if they are bothering you too much, you probably do not need to do any further workup for your esophagus. Manometry could be considered if symptoms persist. Stand Alone Forms: Anesthesia Discharge Inst., DSU Post EGD Instructions, Musa Guadarrama (DSU) Activity:: Activity as Tolerated Diet:: As Tolerated Discharge Orders Discharge Orders: Discharge Order (Routine); Ordered 08/15/24 Ordered By: Ryan Kapadia
--- NOTE | 2024-08-15 13:29 | STOM_PTH ---
PATIENT: Jaja Patricio LOC: [facility] U#:[id number] AGE/SX: 39/F ROOM: RE08/15/[address]: Ryan Kapadia : 1985 BED: DIS: 08/15/2024 SPEC #: [id number] RECD: 08/15/24 15:32 STATUS: ROM REQ #: [id number] TUCKER: 08/15/24 13:[address]: Ryan Kapadia DEPT: Surgical Specimen RECD BY: Liliana Bush ENTERED: 08/15/24 15:33 SP TYPE: STOMACH OTHR DR: Georgi Caro DNP Tissues: 1 - STOMACH BIOPSY 2 - ESOPHAGUS BIOPSY Procedures: GROSS AND MICRO LEVEL 4 IMMUNOPEROXIDASE STAIN Comments: [id number]
[2024-08-15 13:48] VITALS: BP 103/70; PULSE 86; RESP 16; TEMP 36.2; O2SAT 100
--- NOTE | 2024-08-15 14:06 | W.ANESPOSTOP ---
Postoperative Evaluation Date, Time and Location Date Performed: 08/15/24 Time Performed: 14:06 Patient Location: Day Surgery Unit Vital Signs Most Recent Imported Vital Signs: Most Recent Vital Signs Temp Pulse Resp BP Pulse Ox 36.2 C L 86 16 103/70 100 08/15/24 13:48 08/15/24 13:48 08/15/24 13:48 08/15/24 13:48 08/15/24 13:48 Pain Score Most Recent Pain Score: Most Recent Pain Score Pain Level 0 08/15/24 13:48 Assessment Mental Status: Awake (Alert & Oriented to Patient Baseline) Airway and Respiratory Function: Patent airway with normal (patient baseline) respiratory exam Cardiovascular Function: Hemodynamically Stable Hydration Status: Adequately Hydrated Nausea & Vomiting: No Nausea or Vomiting Pain: Pt. Denies Any Pain Peripheral Nerve Block: Patient did not receive a nerve block
[2024-08-15 14:14] VITALS: BP 99/67; PULSE 59; RESP 16; TEMP 36.2; O2SAT 100
== END 2024-08-15 14:48 | disposition home or self-care (01) ==
PROVIDERS: PCP Nurse Practitioner Family; Visit Provider Student in an Organized Health Care Education/Training Program
PROC: 0DJ68ZZ Inspection of Stomach, Via Natural or Artificial Opening Endoscopic (ICD-10-PCS; CPT 43235; principal; 2024-08-15 14:15)
DX: R07.9 Chest pain, unspecified (principal); K22.5 Diverticulum of esophagus, acquired; K31.9 Disease of stomach and duodenum, unspecified; K22.89 Other specified disease of esophagus
CPT/HCPCS: 43239; 88305; 88361; J2003; J2250; J2405; J2704

== ENCOUNTER 2025-03-10 17:16 | Outpatient (REF) | payer OTHER, SELFPAY ==
--- NOTE | 2025-03-10 12:40 | PAPFT_PTH ---
PATIENT: Jaja Patricio LOC: [facility] U#:[id number] AGE/SX: 40/F ROOM: RE03/10/[address]: Georgi Caro DNP : 1985 BED: DIS: 03/10/2025 SPEC #: [id number] RECD: 03/10/25 18:11 STATUS: ROM REQ #: [id number] TUCKER: 03/10/25 12:[address]: Georgi Vasquez DEPT: [facility] Cytology RECD BY: Liliana Bush Tissues: 1 - CX/ENDOCX FOR PAP SMEARS Procedures: PAP THIN PREP/UVM Screening HPV DNA PROBE Comments: [id number] (HPV 16 & 18/45)
== END 2025-03-10 17:17 | disposition home or self-care (01) ==
LOC: LBN 17:16
PROVIDERS: PCP Nurse Practitioner Family; Visit Provider Nurse Practitioner Family
DX: Z12.4 Encounter for screening for malignant neoplasm of cervix (principal)
CPT/HCPCS: 88142; 87624